=== PATIENT | male | born 1975 | race Asian ===

== ENCOUNTER 2017-08-16 19:37 | Emergency (ER) | payer MEDICAID ==
[~2017-08-16] VITALS: Ht 167.6 cm; Wt 61.2 kg
[2017-08-16 19:55] VITALS: BP 121/78
[2017-08-16 20:52] VITALS: BP_SYST 112; BP_SYST 115; BP_DIAS 71; BP_DIAS 78; BP_DIAS 81
[2017-08-16] MEDS ORDERED: CLARITIN10 M1 ORAL (21:01)
[2017-08-16 21:15] VITALS: BP 115/77
--- NOTE | 2017-08-17 11:18 | Diagnostic Imaging Report ---
Indication: Dyspnea Technique: XRAY Chest 1v Comparison: None Findings: Heart size and mediastinal contours are within normal limits. There is no focal consolidation, pneumothorax or pleural effusion. Osseous structures demonstrate no acute abnormality. Impression: No radiographic evidence of acute cardiopulmonary disease.
--- NOTE | 2017-08-23 05:28 | Emergency Room Report ---
History of Present Illness General Chief Complaint: Chest Pain Source: Patient Present Illness HPI The patient is a 42-year-old female presented after increased cough and chest discomfort. Patient noted have pain below her ribs associated with coughing. Patient reported having nonproductive cough. She additionally had some nasal congestion. Patient had been having pain for several days.The patient denies any leg pain or swelling. The pain is unchanged by exertion. Allergies: Coded Allergies: AMOXICILLIN (Verified Allergy, Unknown, 08/16/17) Patient History Past Medical History: see triage record Reviewed Nursing Documentation: PMH: Agreed, PSxH: Agreed Nursing Documentation-PMH Past Medical History: No History, Except For Hx Cardiac Problems: No - mitral valve prolapse Review of Systems All Other Systems: negative except mentioned in HPI Physical Exam Vital Signs Date Time Temp Pulse Resp B/P (MAP) Pulse Ox O2 Delivery O2 Flow Rate FiO2 08/16/17 19:41 97.9 77 16 126/85 99 Room Air Sp02 EP Interpretation: reviewed, normal General Appearance: normal inspection, well appearing, no apparent distress, alert, GCS 15 Head: atraumatic ENT: normal ENT inspection, hearing grossly normal, normal voice Neck: normal inspection, full range of motion, supple, no bony tend Respiratory: normal inspection, lungs clear, normal breath sounds, no respiratory distress, no retraction, no wheezing Cardiovascular #1: regular rate, rhythm, no edema Gastrointestinal: normal inspection, normal bowel sounds, non tender, soft, no guarding, no hernia Genitourinary: no CVA tenderness Musculoskeletal: normal inspection, back normal, normal range of motion, Pallavi' s Sign negative Neurologic: normal inspection, alert, oriented x3, responsive, php architect III-XII nml as tested, motor strength/tone normal, speech normal Psychiatric: normal inspection, judgement/insight normal, mood/affect normal Skin: normal inspection, normal color, no rash Medical Decision Making Diagnostic Impression: Primary Impression: Upper respiratory infection, viral ER Course Patient presented for chest pain.Differential diagnosis included but was not limited to acute coronary syndrome, pulmonary embolism, pneumonia, aortic dissection, shingles, pneumothorax, aortic dissection, esophageal rupture, pericarditis. Patient has a benign exam and does not appear to require any further imaging or laboratory testing at this time. The patient presented viral respiratory infection. The patient does not appear to be septic.Patient was given a prescription for Claritin for symptomatic treatment. The patient is advised to follow up with primary care doctor in 1-2 days. Patient is advised to return if any worsening condition or if any changes in status that are concerning. This report is dictated with [employer] principle software engineer software which may occasionally lead to discrepancies related to use of this software. Last Vital Signs Date Time Temp Pulse Resp B/P (MAP) Pulse Ox O2 Delivery O2 Flow Rate FiO2 08/16/17 21:15 97.9 77 14 115/77 98 Room Air Status: improved Disposition: HOME, SELF-CARE Condition: Stable Scripts Loratadine (CLARITIN) 10 Mg Tab.rapdis 10 MG ORAL DAILY, #20 TAB Prov: Jonas Servin 08/16/17 [facility]REFERRING (PCP) Patient Instructions: Nonspecific Chest Pain Jonas Servin Aug 23, 2017 05:28
--- NOTE | 2017-08-26 13:56 | Cardiology Report ---
APPROVED REPORT EKG Measurement Heart [id number] Normal sinus rhythm Normal ECG
== END 2017-08-16 21:15 | disposition home or self-care (01) ==
LOC: EMR 21:00
DX: J06.9 Acute upper respiratory infection, unspecified (principal); Z88.0 Allergy status to penicillin
CPT/HCPCS: 71045; 93005; 99282

== ENCOUNTER 2017-10-26 04:57 | Emergency (ER) | payer MEDICAID, OTHER ==
[~2017-10-26] VITALS: Ht 166.4 cm; Wt 61.2 kg
[~2017-10-26 04:57] MED LIST: CLARITIN10 M1 ORAL
[2017-10-26 05:25] VITALS: BP 118/81
--- NOTE | 2017-10-26 05:26 | Emergency Room Report ---
History of Present Illness General Chief Complaint: General Complaint Source: Patient Present Illness HPI Is a 42-year-old male with a history of mitral valve prolapse diagnosed about 22 years ago. He presents with chief complaint of palpitation. He was sleeping when he felt his heart stopped for second and it woke him up gasping for air. This only lasted for a second or so. This was about an hour ago. He was resting and it occurred again. He said he has a lot of sugar and possibly coffee tonight. No fever or chills but no nausea no vomiting. No chest pain. Asymptomatic now. Denies any other complaint. No syncope. Allergies: Coded Allergies: AMOXICILLIN (Verified Allergy, Unknown, 08/16/17) Patient History Past Medical History: none, see triage record, old chart reviewed Past Surgical History: none Pertinent Family History: none Social History: Denies: smoking Immunizations: other Reviewed Nursing Documentation: PMH: Agreed; PSxH: Agreed Nursing Documentation-PMH Hx Cardiac Problems: Yes - MITRAL VALVE PROLAPSE Review of Systems Eye: Denies: eye pain, blurred vision ENT: Denies: ear pain, nose congestion, throat swelling Respiratory: Denies: cough, shortness of breath Cardiovascular: Reports: palpitations; Denies: chest pain Gastrointestinal: Denies: abdominal pain, diarrhea, nausea, vomiting Musculoskeletal: Denies: back pain, joint pain Skin: Denies: rash Neurological: Denies: headache, numbness Endocrine: Denies: increased thirst, increased urine Hematologic/Lymphatic: Denies: easy bruising All Other Systems: negative except mentioned in HPI Physical Exam Vital Signs Date Time Temp Pulse Resp B/P (MAP) Pulse Ox O2 Delivery O2 Flow Rate FiO2 10/26/17 05:04 98.0 71 22 129/82 95 Room Air 98.1 vitals normal Sp02 EP Interpretation: reviewed, normal General Appearance: well appearing, no apparent distress, alert Head: normocephalic, atraumatic Eyes: bilateral eye PERRL, bilateral eye EOMI ENT: hearing grossly normal, normal pharynx Neck: full range of motion, supple, no meningismus Respiratory: chest non-tender, lungs clear, normal breath sounds Cardiovascular #1: regular rate, rhythm, no murmur Gastrointestinal: normal bowel sounds, non tender, no mass, no organomegaly, no bruit, non-distended Musculoskeletal: back normal, gait/station normal, normal range of motion Psychiatric: mood/affect normal Skin: warm/dry Medical Decision Making Diagnostic Impression: Primary Impression: Palpitations ER Course Patient with questionable palpitation and dyspnea that lasted only about a second or so. I suspect it may be a sinus pulse, PVC, SVT, or other arrhythmia name a few. He is asymptomatic now. EKG unremarkable. No delta wave. We'll discharge home with reassurance. Patient said that he is supposed to see a hospice case manager for recheck on his heart regarding his mitral valve prolapse. He has not make an appointment but then improved. EKG Diagnostic Results Rate: normal Rhythm: NSR ST Segments: no acute changes Rhythm Strip Diag. Results Rhythm Strip Time: 05:25 EP Interpretation: yes Rate: 75 Rhythm: NSR, no PVC's, no ectopy Last Vital Signs Date Time Temp Pulse Resp B/P (MAP) Pulse Ox O2 Delivery O2 Flow Rate FiO2 18 05:04 98.0 71 22 129/82 95 Room Air 98.1 Status: unchanged Disposition: HOME, SELF-CARE Condition: Stable Additional Instructions: Follow-up with your doctor in 7 days. Make appointment with the hospice case manager. You may benefit from a Holter monitor. avoid caffeine. Return if symptom worsen. GEORGETTE SANTIAGO M.D. Oct 26, 2017 05:26
--- NOTE | 2017-10-27 17:28 | Cardiology Report ---
APPROVED REPORT EKG Measurement Heart [id number] Normal sinus rhythm Normal ECG
== END 2017-10-26 05:45 | disposition home or self-care (01) ==
LOC: EMR 05:41
DX: R00.2 Palpitations (principal); I34.1 Nonrheumatic mitral (valve) prolapse; Z88.0 Allergy status to penicillin
CPT/HCPCS: 93005; 99283

== ENCOUNTER 2019-06-07 19:12 | Emergency (ER) | payer MEDICAID ==
[~2019-06-07] VITALS: Ht 167.6 cm; Wt 61.2 kg
--- NOTE | 2019-06-07 19:20 | NUR ---
ED Nurse Note: pt walked in c/o shortness of breath, headache, lightheadedness, numbness and tingling sensation in fingers for a while, pt reports sx worsen when he goes to work and happens randomly. no sx resp disress noted at this time, RR=16, LS=clear, b5=919% on RA noted, airway intact, pt able speak in complete sentences without difficulty or cathing a breath, noted occasional dry cough, noted pt inhaling deep occasionally. pt sinus rhythm on cardiac care nurse, vss, will cont monitor. AA&ox4, gcs=15, skin warm and dry, resp even and unlabored on RA.
[2019-06-07] MEDS ORDERED: CARDIZEM120 MG PO (19:22)
--- NOTE | 2019-06-07 20:00 | NUR ---
ED Nurse Note: pt states he takes cardizem 30mg daily and he needs to take it, ER provider notified and verified if it's okay for pt to take, per ER provider, pt is okay to take cardizem. pt informed.
[2019-06-07 20:11] LABS: APPEARANCE,URINE CLEAR; BILIRUBIN, URINE NEGATIVE (NEGATIVE); COLOR,URINE PALE YELLOW; GLUCOSE, URINE (UA) NEGATIVE (NEGATIVE); KETONES,URINE NEGATIVE (NEGATIVE); LEUKOCYTE ESTERASE ,URINE NEGATIVE (NEGATIVE); NITRITE,URINE NEGATIVE (NEGATIVE); PH,URINE 7 (4.5-8.0); PROTEIN,URINE NEGATIVE (NEGATIVE); UROBILINOGEN,URINE NORMAL MG/DL (0.0-1.0)
[2019-06-07 20:12] VITALS: BP 148/68
[2019-06-07 20:16] LABS: EOSINOPHILS % (AUTO) 2.1 % (0.0-3.0); HEMATOCRIT 49.9 % (42.0-52.0); HEMOGLOBIN 17.8 G/DL (14.2-18.0); INR 1.1 (0.9-1.1); LYMPHOCYTES % (AUTO) 19.1 % (20.0-45.0); MEAN CORPUSCULAR VOLUME 86 FL (80-99); MONOCYTES % (AUTO) 8.1 % (1.0-10.0); NEUTROPHILS % (AUTO) 69.7 % (45.0-75.0); PLATELET COUNT 287 K/UL (150-450); RED BLOOD COUNT 5.83 M/UL (4.70-6.10); RED CELL DISTRIBUTION WIDTH 9.8 % (11.6-14.8); WHITE BLOOD COUNT 7.7 K/UL (4.8-10.8)
[2019-06-07 20:19] LABS: ANION GAP 8 mmol/L (5-15); BLOOD UREA NITROGEN 9 mg/dL (7-18); CALCIUM 8.6 MG/DL (8.5-10.1); CARBON DIOXIDE 30 MMOL/L (21-32); CHLORIDE 98 MMOL/L (98-107); CREATININE 0.9 MG/DL (0.55-1.30); POTASSIUM 3.6 MMOL/L (3.5-5.1); SODIUM 136 MMOL/L (136-145)
[2019-06-07 20:29] LABS: ALANINE AMINOTRANSFERASE 26 U/L (12-78); ALBUMIN/GLOBULIN RATIO 1.1 (1.0-2.7); ALKALINE PHOSPHATASE 55 U/L (46-116); ASPARTATE AMINO TRANSFERASE 17 U/L (15-37); BILIRUBIN,TOTAL 0.3 MG/DL (0.2-1.0)
--- NOTE | 2019-06-07 20:50 | Emergency Room Report ---
History of Present Illness General Chief Complaint: Dyspnea/Respdistress Source: Patient Present Illness HPI 44-year-old male with history of mitral valve prolapse currently reporting that has been taking diltiazem daily for many years, and anxiety here complaining of 2 weeks of shortness of breath upon walking as well as feeling heaviness in both legs. Patient reports that he went to [facility] a week ago for similar symptoms and was worked up for cardiac reasons and was diagnosed with anxiety. Patient reports that his symptoms have been getting worse ever since and has been unable to follow-up with a primary care physician. Patient reports that he has not seen a courtroom deputy in 3 years and has been getting refills of his that diltiazem from his primary care physician. Patient takes his nightly dose of diltiazem at [facility] at 8 PM tonight. Upon arrival blood pressure is elevated however goes down after taking his medication. Denies chest pain radiation only complains of shortness of breath and feeling weak and stiff in both hands. Patient does report that he has history of anxiety and used to be on Zoloft years ago but has not seen a psychiatrist nor has taken any anxiety medications for years. Patient denies SI and HI at this time. Reports that has an upcoming appointment with a psychotherapist next week. Denies tobacco smoke, marijuana use, drug use, alcohol intake. Denies nausea vomiting, loss of consciousness, and other associated symptoms. Denies recent travel, sitting for prolonged hours, recent lower extremity surgery. Denies history of DVT. Denies recent URI symptoms. Allergies: Coded Allergies: AMOXICILLIN (Verified Allergy, Unknown, 08/16/17) Patient History Past Medical History: see triage record Past Surgical History: unable to obtain Pertinent Family History: none Immunizations: UTD Reviewed Nursing Documentation: PMH: Agreed; PSxH: Agreed Nursing Documentation-PMH Hx Cardiac Problems: Yes - MITRAL VALVE PROLAPSE Review of Systems All Other Systems: negative except mentioned in HPI Physical Exam Vital Signs Date Time Temp Pulse Resp B/P (MAP) Pulse Ox O2 Delivery O2 Flow Rate FiO2 06/07/19 19:16 98.2 107 19 154/81 (105) 98 Room Air Sp02 EP Interpretation: abnormal - Elevated blood pressure upon arrival General Appearance: alert, GCS 15, non-toxic, mild distress Head: normocephalic, atraumatic Eyes: bilateral eye normal inspection, bilateral eye PERRL ENT: hearing grossly normal, normal pharynx, no angioedema, normal voice Neck: full range of motion, supple, thyroid normal, no meningismus, no bony tend, supple/symm/no masses Respiratory: chest non-tender, lungs clear, normal breath sounds, no rhonchi, no respiratory distress, no retraction, no wheezing, speaking full sentences Cardiovascular #1: regular rate, rhythm, no edema, no gallop, no murmur, normal capillary refill Cardiovascular #2: 2+ carotid (R), 2+ carotid (L), 2+ radial (R), 2+ radial (L) , 2+ dorsalis pedis (R), 2+ dorsalis pedis (L) Gastrointestinal: normal bowel sounds, non tender, soft, non-distended, no guarding, no rebound Rectal: deferred Genitourinary: no CVA tenderness Musculoskeletal: back normal, gait/station normal, normal range of motion, non- tender, no calf tenderness, pelvis stable Neurologic: alert, oriented x3, responsive, motor strength/tone normal, sensory intact, speech normal Psychiatric: memory normal, no suicidal/homicidal ideation, no delusions, anxious Skin: no rash Lymphatic: normal inspection, no adenopathy Medical Decision Making PA Attestation All diagnoses and treatment plans were reviewed and discussed with my supervising physician Dr. Lee Diagnostic Impression: Primary Impression: Dyspnea Additional Impression: Anxiety ER Course 44-year-old male with history of mitral valve prolapse currently reporting that has been taking diltiazem daily for many years, and anxiety here complaining of 2 weeks of shortness of breath upon walking as well as feeling heaviness in both legs. Patient reports that he went to [facility] a week ago for similar symptoms and was worked up for cardiac reasons and was diagnosed with anxiety. Patient reports that his symptoms have been getting worse ever since and has been unable to follow-up with a primary care physician. Patient reports that he has not seen a courtroom deputy in 3 years and has been getting refills of his that diltiazem from his primary care physician. Patient takes his nightly dose of diltiazem at [facility] at 8 PM tonight. Upon arrival blood pressure is elevated however goes down after taking his medication. Denies chest pain radiation only complains of shortness of breath and feeling weak and stiff in both hands. Patient does report that he has history of anxiety and used to be on Zoloft years ago but has not seen a psychiatrist nor has taken any anxiety medications for years. Patient denies SI and HI at this time. Reports that has an upcoming appointment with a psychotherapist next week. Denies tobacco smoke, marijuana use, drug use, alcohol intake. Denies nausea vomiting, loss of consciousness, and other associated symptoms. Denies recent travel, sitting for prolonged hours, recent lower extremity surgery. Denies history of DVT. Denies recent URI symptoms Ddx considered but are not limited to: DVT, pulmonary embolism, dyspnea presumed cardiac, COPD, pneumonia, generalized anxiety disorder, panic attack, depression with psycotic featurs, bipolar disorder, drug overdose Vital signs: are WNL, pt. is afebrile H&PE are most consistent with: Dyspnea presumed cardiac, anxiety ORDERS: Chest pain order set ED INTERVENTIONS: NS bolus DISCHARGE: At this time pt. is stable for d/c to home. Will provide printed patient care instructions, and any necessary prescriptions. Care plan and follow up instructions have been discussed with the patient prior to discharge. Patient to follow-up with your courtroom deputy regarding mitral valve prolapse and had a echo done as dyspnea can be secondary to cardiac issues. Also follow- up with therapist regarding anxiety as the symptoms can be secondary to his anxiety. If worsening symptoms return to the emergency room EKG Diagnostic Results Rate: normal Rhythm: NSR ST Segments: no acute changes Other Impression No acute ST changes Chest X-Ray Diagnostic Results Chest X-Ray Diagnostic Results : Chest X-Ray Ordered: Yes # of Views/Limited/Complete: 1 View Indication: Shortness of Breath EP Interpretation: Yes MCKAY Xray: Interpretation reviewed, by supervising MD, and agrees with findings. Interpretation: no consolidation, no effusion, no pneumothorax Impression: No acute disease Electronically Signed by: Evy Craig PA-C CT/MRI/US Diagnostic Results CT/MRI/US Diagnostic Results : Imaging Test Ordered: Venous duplex ultrasound bilateral lower extremities Impression WNL, no DVT Last Vital Signs Date Time Temp Pulse Resp B/P (MAP) Pulse Ox O2 Delivery O2 Flow Rate FiO2 06/07/19 20:12 98.2 86 19 148/68 98 Room Air Disposition: HOME, SELF-CARE Condition: Stable Patient Instructions: Generalized Anxiety Disorder, Shortness of Breath, Easy- to-Read Additional Instructions: Follow-up with your courtroom deputy regarding her mitral valve prolapse as he has not seen a courtroom deputy in 3 years and the ER shortness of breath can be secondary to cardiac reasons which needs to be further evaluated by courtroom deputy and echo of heart needs to be done. Also you need to be referred to a therapist in order to proceed with your anxiety management and your symptoms can be secondary to anxiety. If worsening symptoms return to emergency room. Evy Casanova Jun 07, 2019 20:50
[2019-06-07 21:30] VITALS: BP 132/66
--- NOTE | 2019-06-07 21:30 | NUR ---
ED Nurse Note: pt cleared to be d/c per ERMD, pt discharge and aftercare instruction provided, pt advised to follow up with pcp or return to ed if changes in condition, vss, ambulatory w/steady gait, iv d/c and id band removed, during dc process pt reports pt is lightheaded, ermd spoke with pt, possible side effect of cardizem, pt verbalized understanding, pt advised to return if sx persist or worsen, pt left w/ all belongings.
--- NOTE | 2019-06-07 21:46 | Diagnostic Imaging Report ---
Indication: Pain, shortness of breath Technique: Grayscale and duplex images of the bilateral lower extremity veins Comparison: none Findings: Bilaterally, grayscale and duplex images demonstrate no evidence of intraluminal thrombus. Normal phasic Doppler waveforms, demonstrating normal augmentation response and no evidence of valvular insufficiency. Normal compressibility. Impression: Negative for evidence of lower extremity deep venous thrombosis This agrees with the preliminary interpretation provided overnight by [facility]eradiology service.
--- NOTE | 2019-06-08 11:41 | Diagnostic Imaging Report ---
Indication: Chest pain Technique: One view of the chest Comparison: 08/16/2017 Findings: Lungs and pleural spaces are clear. Heart size is normal. No significant change Impression: No acute process
== END 2019-06-07 21:30 | disposition home or self-care (01) ==
LOC: EMR 19:41
DX: R06.00 Dyspnea, unspecified (principal); F41.9 Anxiety disorder, unspecified; Z88.0 Allergy status to penicillin
CPT/HCPCS: 36415; 71045; 80053; 80307; 81003; 81025; 83880; 84484; 85025; 85379; 85610; 86850; 86900; 86901; 93005; 93970; Z7502; 99284